=== PATIENT | female | born 1975 | race Caucasian/White ===

== ENCOUNTER 2017-06-13 19:05 | Emergency (ER) | payer OTHER ==
[~2017-06-13] VITALS: Ht 175.3 cm; Wt 117.1 kg
[~2017-06-13 19:05] MED LIST: BACTRIM,SEPT1 TABLET; ENDOCET 5-3251 EACH PO; FERROUS SULFAT325 MG PO; FLOMAX0.4 MG PO; FLOVENT DISKUS1 DIS2 IH; IBUPROFEN800 MG PO; NOHOMEMEDS; PERCOCET 5/31 TABLET PO; PRENATAL 1-1 T1 EACH PO; PRENATAL TABLE1 EAC3 PO; VENTOLIN HFA18 GM IH; ZOFRAN ODT4 MG PO; [UNRECOGNIZED DRUG - REMARK] IH
[2017-06-13 19:47] LABS: MCHC 34.2 G/DL (30.0-36.0); MCV 84.9 FL (83-99); MEAN PLAT.VOLUME 9.9 uM^3 (9.5-12.4); PLATELET COUNT 156 K/uL (156-360); RBC DIS.WIDTH-CV 12.8 % (11.8-14.6); RBC DIS.WIDTH-SD 39.6 % (39-53); RED BLOOD COUNT 4.24 M/uL (3.80-5.20); WHITE BLOOD COUNT 5.6 K/uL (4.1-10.2)
[2017-06-13 19:56] LABS: CHLORIDE 104 mEq/L (99-109); POTASSIUM 3.7 mEq/L (3.7-5.4); SODIUM 136 mEq/L (136-147)
[2017-06-13 19:57] LABS: GLUCOSE 104 mg/dL (70-99)
[2017-06-13 19:59] LABS: ANION GAP 9 MEQ/L (2-14)
[2017-06-13 20:01] LABS: GFR ESTIMATE (CALCULATED) > 59 mL/min/
[2017-06-13 20:02] LABS: UREA NITROGEN (BUN) 9 mg/dL (9-23)
[2017-06-14] MEDS ORDERED: TYLENOL WITH C1 EACH PO (00:12)
[2017-06-14] MEDS ORDERED: MOTRIN800 MG PO (00:12)
[2017-06-14 00:27] VITALS: BP 110/68
== END 2017-06-14 00:35 | disposition home or self-care (01) ==
LOC: EME 19:05
PROVIDERS: Emergency Medicine
DX: J11.1 Influenza due to unidentified influenza virus with other respiratory manifestations (principal); F32.9 Major depressive disorder, single episode, unspecified; K21.9 Gastro-esophageal reflux disease without esophagitis; Z87.891 Personal history of nicotine dependence; Z88.1 Allergy status to other antibiotic agents
CPT/HCPCS: 71020; 80048; 85027; 87502; 94640; J1100; J1885